=== PATIENT | male | born 1955 | race African-American/Black ===

== ENCOUNTER → 2017-10-09 | Outpatient (CLI) | payer OTHER ==
[~2017-10-09] MED LIST: CIPROFLOXACIN500 M1 PO; FLEXERIL PO; HIGH CHOLESTEROL MED; LORTAB 7.5/5001 TA3 PO; PERCOCET 5-3251 EACH PO; SIMVASTATIN20 MG PO; SIMVASTATIN40 MG PO; VALIUM5 MG PO
== END ==
LOC: ULTRA 09:39
DX: M79.662 Pain in left lower leg (principal); R60.9 Edema, unspecified

== ENCOUNTER → 2017-11-17 | Outpatient (CLI) | payer OTHER | LOC: MRI 06:19 | DX: M19.011 Primary osteoarthritis, right shoulder (principal); M25.411 Effusion, right shoulder ==